=== PATIENT | male | born 1970 | race Caucasian/White ===

== ENCOUNTER 2021-03-08 14:45 | Outpatient (CLI) | payer OTHER | END 2021-03-08 14:46 | disposition home or self-care (01) | LOC: CSHMRI 14:45 | PROVIDERS: ATTEND Internal Medicine | DX: M54.12 Radiculopathy, cervical region (principal); M47.812 Spondylosis without myelopathy or radiculopathy, cervical region; M48.02 Spinal stenosis, cervical region; M50.01 Cervical disc disorder with myelopathy, high cervical region | CPT/HCPCS: 72141 ==

== ENCOUNTER 2021-10-13 18:47 | Emergency (ER) | payer OTHER ==
[2021-10-13] MEDS ORDERED: Lorazepam 2 MG/ML VIAL ONE (19:57)
[2021-10-13] MEDS ORDERED: Ketorolac Tromethamine 30 MG/ML VIAL ONE (19:57)
[2021-10-13] MEDS ORDERED: Fentanyl 100 MCG/2 ML VIAL ONE (19:58)
== END 2021-10-13 21:12 | disposition home or self-care (01) ==
LOC: CSHERS 18:47
DX: S39.012A Strain of muscle, fascia and tendon of lower back, initial encounter (principal)
CPT/HCPCS: 72131; 96374; 96375; J1885; J2060; J3010